=== PATIENT | female | born 1965 | race Caucasian/White ===

== ENCOUNTER 2016-08-13 16:12 | Emergency (ER) | payer MEDICAID ==
[2016-08-13] MEDS ORDERED: HYDROmorphone 1 MG/ML Syringe IM ONE ×2 (17:31→19:11)
[2016-08-13] MEDS ORDERED: Triamcinolone Acetonide 40 MG/ML 1 ML MDV INJECT PRN (18:20)
[2016-08-13] MEDS ORDERED: Ondansetron 4 MG Tab.DIS PO ONE (18:45)
[2016-08-13] MEDS ORDERED: Ondansetron 4 MG/2 ML SDV IVPUSH ONE (19:38)
[2016-08-13] MEDS ORDERED: LORazepam 2 MG/ML MDV IVPUSH ONE (19:39)
[2016-08-13] MEDS ORDERED: Sodium Chloride 0.9% 1,000 ML IV SCH (19:45)
[2016-08-13 21:26] VITALS: BP 126/68
--- NOTE | 2016-08-13 21:32 | EDM.PDOC ---
ED HPI GENERAL MEDICAL PROBLEM - General Chief Complaint: Lower Extremity Injury/Pain Stated Complaint: LT HIP PAIN Time Seen by Provider: 08/13/16 18:12 Source of Information: Reports: Patient History Limitations: Reports: No Limitations - History of Present Illness INITIAL COMMENTS - FREE TEXT/NARRATIVE: History of present illness: [51-year-old female presents complaining of severe 9 out of 10 left hip pain that came on spontaneously at about noon today. She's been to a chiropractor and the clinic received a shot at the clinic and then presented to the ER with severe pain. She's never had anything like this before ambulates with a limp. No history of trauma. No history of arthritis. She does complain of some numbness of her anterior terry at times with it. No weakness of the left lower extremity. No other complaints and no low back pain.] Review of systems: As per history of present illness and below otherwise all systems reviewed and negative. Past medical history: As per history of present illness and as reviewed below otherwise noncontributory. Surgical history: As per history of present illness and as reviewed below otherwise noncontributory. Social history: No reported history of drug or alcohol abuse. Family history: As per history of present illness and as reviewed below otherwise noncontributory. Physical exam: HEENT: Atraumatic, normocephalic, pupils reactive, negative for conjunctival pallor or scleral icterus, mucous membranes moist, throat clear, neck supple, nontender, trachea midline. Lungs: Clear to auscultation, breath sounds equal bilaterally Heart: S1S2, regular Abdomen: Soft, nondistended, nontender. Pelvis: Stable nontender. Genitourinary: Deferred. Rectal: Deferred. Extremities: Manipulation of left hip does not seem to cause any exacerbation of her pain her pain is diffuse and lateral and also into the groin but she does have pain on palpation over the lateral greater trochanteric area. No redness or warmth is present Neuro: Awake, alert, oriented. Cranial nerves II through XII unremarkable. Cerebellum unremarkable. Motor and sensory unremarkable throughout. Exam nonfocal. Diagnostics: [X-rays and pelvic x-rays were both negative for any fracture. She does have some degenerative changes.] Therapeutics: [She received 2 doses of Dilaudid IV fluids also dose of Ativan as she was hyperventilating and I also injected the left greater trochanter with 40 mg of Kenalog mixed with 3 mL of lidocaine 1% without epinephrine. She received moderate help with these interventions but was still in some pain when she left the ER.] Impression: [Left hip pain suspicious for left greater trochanteric bursitis or iliotibial band syndrome] Plan: [She is discharged with 15 [place] and instructed to follow-up the clinic of her pain persists she can try heat and/or ice to the area. She might benefit from physical therapy.] Definitive disposition and diagnosis as appropriate pending reevaluation and review of above. left hip Pain Score (Numeric/FACES): 5 - Related Data Allergies Allergy/AdvReac Type Severity Reaction Status Date / Time apple Allergy Airway Verified 08/13/16 19:19 Tightness peach Allergy Airway Verified 08/13/16 19:19 Tightness peanut Allergy Airway Verified 08/13/16 19:19 Tightness Sulfa (Sulfonamide Allergy Rash Verified 08/13/16 19:19 Antibiotics) tree nut Allergy Airway Verified 08/13/16 19:19 Tightness Home Meds: Home Meds NK [No Known Home Meds] 08/27/15 [History] Past Medical History - Past Surgical History HEENT Surgical History: Reports: Tonsillectomy GI Surgical History: Reports: Bariatric Procedure, Cholecystectomy Social & Family History - Family History Oncologic: Reports: Prostate - Tobacco Use Smoking Status *Q: Never Smoker - Recreational Drug Use Recreational Drug Use: No Review of Systems - Review of Systems Review Of Systems: ROS reveals no pertinent complaints other than HPI. ED EXAM, GENERAL - Physical Exam Exam: See Below Course - Vital Signs Last Recorded V/S: Last Vital Signs Temp 35.2 C L 08/13/16 21:22 Pulse 102 H 08/13/16 21:22 Resp 14 08/13/16 21:22 BP 126/68 08/13/16 21:22 Pulse Ox 93 L 08/13/16 21:22 - Orders/Labs/Meds Orders: Active Orders 24 hr Category Date Time Status Hip Min 2V or 3V Lt [CR] Stat Exams 08/13/16 17:31 Taken Pelvis wo Cont [CT] Stat Exams 08/13/16 19:12 Taken Sodium Chloride 0.9% [Normal Saline] 1,000 ml Med 08/13/16 19:45 Active IV ASDIRECTED Medication Orders Sodium Chloride (Normal Saline) 1,000 mls @ 300 mls/hr IV ASDIRECTED RICARDO Last Admin: 08/13/16 20:08 Dose: 300 mls/hr Meds: Medications Generic Name Dose Route Start Last Admin Trade Name Ej PRN Reason Stop Dose Admin Sodium Chloride 1,000 mls @ 300 mls/hr 08/13/16 19:45 08/13/16 20:08 Normal Saline IV 300 mls/hr ASDIRECTED RICARDO Administration Discontinued Medications Generic Name Dose Route Start Last Admin Trade Name Ej PRN Reason Stop Dose Admin Hydromorphone HCl 1 mg 08/13/16 17:31 08/13/16 17:37 Dilaudid IM 08/13/16 17:32 1 mg ONETIME ONE Administration Hydromorphone HCl 1 mg 08/13/16 19:11 08/13/16 19:19 Dilaudid IM 08/13/16 19:12 1 mg ONETIME ONE Administration Lidocaine HCl 5 ml 08/13/16 18:21 08/13/16 18:35 Xylocaine-Mpf 1% INJECT 08/13/16 18:22 5 ml ONETIME ONE Administration Lorazepam 1 mg 08/13/16 19:39 08/13/16 20:00 Ativan IVPUSH 08/13/16 19:40 1 mg ONETIME ONE Administration Ondansetron HCl 4 mg 08/13/16 18:45 08/13/16 18:56 Zofran Odt PO 08/13/16 18:46 4 mg ONETIME ONE Administration Ondansetron HCl 4 mg 08/13/16 19:38 08/13/16 19:56 Zofran IVPUSH 08/13/16 19:39 4 mg ONETIME ONE Administration Triamcinolone Acetonide 40 mg 08/13/16 18:20 08/13/16 18:35 Kenalog-40 INJECT 08/13/16 18:21 40 mg ASDIRECTED PRN Administration Pain (severe 7-10) Departure - Departure Time of Disposition: 21:31 Disposition: Home, Self-Care 01 Condition: Good Clinical Impression: Greater trochanteric bursitis of left hip, Iliotibial band syndrome affecting left lower leg - Discharge Information Forms: ED Department Discharge Additional Instructions: Please try applying ice or heat to the area that is hurting. If not improving over the next couple of days follow up in the clinic. Your doctor may order physical therapy for you. You could also try [facility]. - My Orders Last 24 Hours: My Active Orders 08/13/16 19:12 Pelvis wo Cont [CT] Stat 08/13/16 19:45 Sodium Chloride 0.9% [Normal Saline] 1,000 ml IV ASDIRECTED - Assessment/Plan Last 24 Hours: My Active Orders 08/13/16 19:12 Pelvis wo Cont [CT] Stat 08/13/16 19:45 Sodium Chloride 0.9% [Normal Saline] 1,000 ml IV ASDIRECTED
--- NOTE | 2016-08-14 08:50 | CR ---
Hip Min 2V or 3V Lt HISTORY: pain FINDINGS: No acute fracture or dislocation is identified. Bony architecture and joint spaces are preserved. Soft tissues are unremarkable. I see no joint effusion. IMPRESSION: No acute left hip abnormality identified.
== END 2016-08-13 21:51 | disposition home or self-care (01) ==
LOC: JP.ED 16:12
DX: M70.62 Trochanteric bursitis, left hip (principal); M76.32 Iliotibial band syndrome, left leg; Z90.49 Acquired absence of other specified parts of digestive tract; Z91.018 Allergy to other foods; Z88.2 Allergy status to sulfonamides
CPT/HCPCS: 72192; 73502; 96361; 96372; 96374; 96375; 99284; A9270; J1170; J2060; J2405; J3301; J7040

== ENCOUNTER 2016-08-14 10:46 | Observation (INO) | payer MEDICAID ==
[2016-08-14] MEDS ORDERED: Ondansetron 4 MG/2 ML SDV IVPUSH ONE (11:29)
[2016-08-14] MEDS ORDERED: Ketorolac 30 MG/ML SDV IVPUSH ONE (11:29)
[2016-08-14] MEDS ORDERED: Sodium Chloride 0.9% 1,000 ML IV SCH ×2 (11:30→13:00)
--- NOTE | 2016-08-14 11:42 | EDM.PDOC ---
[id number] Complaint: PAIN Time Seen by Provider: 08/14/16 11:41 Source of Information: Reports: Patient History Limitations: Reports: No Limitations - History of Present Illness INITIAL COMMENTS - FREE TEXT/NARRATIVE: pt arrived with marked vomiting related to the hydrocodone. She is very uncomfortable rating her pain greater than a 10. She was seen yesterday and she had hip xrays and she had a cat scan of the pelvis. She had evidence of degenerative disc disease at l5_ s1 There was no acute abnormality of the hip. She did have a steriod injection in the left hip. She has been extremly uncomfortable. Onset: Gradual Duration: Day(s):, Getting Worse Location: Reports: Back, Lower Extremity, Left Left Hip Pain Score (Numeric/FACES): 10 - Related Data Allergies Allergy/AdvReac Type Severity Reaction Status Date / Time apple Allergy Airway Verified 08/14/16 11:01 Tightness peach Allergy Airway Verified 08/14/16 11:01 Tightness peanut Allergy Airway Verified 08/14/16 11:01 Tightness Sulfa (Sulfonamide Allergy Rash Verified 08/14/16 11:01 Antibiotics) tree nut Allergy Airway Verified 08/14/16 11:01 Tightness Home Meds: Home Meds Hydrocodone/Acetaminophen [Hydrocodon-Acetaminophen 5-325] 1 tab PO Q4H PRN [History] Multivitamin [Multi-Vitamin Daily] 1 tab PO DAILY 08/14/16 [History] Past Medical History MEDICAL ASST History: Reports: - Past Surgical History HEENT Surgical History: Reports: Tonsillectomy GI Surgical History: Reports: Bariatric Procedure, Cholecystectomy Social & Family History - Family History Oncologic: Reports: Prostate - Tobacco Use Smoking Status *Q: Never Smoker - Caffeine Use Caffeine Use: Reports: None - Recreational Drug Use Recreational Drug Use: No Review of Systems - Review of Systems Review Of Systems: See Below Constitutional: Reports: No Symptoms Eyes: Reports: No Symptoms Ears: Reports: No Symptoms Nose: Reports: No Symptoms Mouth/Throat: Reports: No Symptoms Respiratory: Reports: No Symptoms Cardiovascular: Reports: No Symptoms GI/Abdominal: Reports: Nausea, Vomiting Genitourinary: Reports: No Symptoms Musculoskeletal: Reports: Other ( severe pain over the left hip, low back and extending into the groin. ) Skin: Reports: No Symptoms ED EXAM, GENERAL - Physical Exam Exam: See Below Free Text/Narrative:: pt arrived with left hip pain and pain in the lumboscral area. She states this came on relatively acutely. She had no known injury. Exam Limited By: No Limitations General Appearance: Alert, Anxious, Severe Distress, Other (pt is wretching and vomiting. ) Ears: Normal TMs Nose: Normal Inspection Throat/Mouth: Normal Inspection Head: Atraumatic Neck: Normal Inspection Respiratory/Chest: No Respiratory Distress Cardiovascular: Regular Rate, Rhythm GI/Abdominal: Soft, Non-Tender (Female) Exam: Deferred Rectal (Female) Exam: Deferred Back Exam: Other (pt is tender over the lower left lumbar area. Sas mild tenderness over the hip capsule. She has a minor increase in pain when the hip is moved. ) Extremities: Normal Inspection, No Pedal Edema Neurological: Alert, Oriented, Normal Cognition Psychiatric: Normal Affect Course - Vital Signs Last Recorded V/S: Last Vital Signs Temp 36.1 C 08/15/16 10:59 Pulse 74 08/15/16 10:59 Resp 16 08/15/16 10:59 BP 123/76 08/15/16 10:59 Pulse Ox 92 L 08/15/16 10:59 - Orders/Labs/Meds Orders: Medication Orders Acetaminophen (Tylenol) 650 mg PO Q4H PRN PRN Reason: Pain (Mild 1-3)/fever Last Admin: 08/15/16 13:56 Dose: 650 mg Hydromorphone HCl (Dilaudid) 0.5 - 1 mg IVPUSH Q2H PRN PRN Reason: Pain (severe 7-10) Last Admin: 08/15/16 11:49 Dose: 1 mg Admin: 08/14/16 21:06 Dose: 1 mg Admin: 08/14/16 16:35 Dose: 1 mg Ibuprofen (Motrin) 600 mg PO Q6H PRN PRN Reason: Pain/Fever Lorazepam (Ativan) 0.5 - 1 mg IVPUSH Q4H PRN PRN Reason: Nausea/Vomiting Last Admin: 08/14/16 21:26 Dose: 1 mg Methylprednisolone (Medrol) 8 mg PO BEDTIME RICARDO Stop: 08/15/16 21:01 Methylprednisolone (Medrol) 4 mg PO 0800,1100,1700,2100 RICARDO Stop: 08/16/16 21:01 Methylprednisolone (Medrol) 4 mg PO TID@0800,1100,2100 [facility] Stop: 08/17/16 21:01 Methylprednisolone (Medrol) 4 mg PO BID@0800,2100 [facility] Stop: 08/18/16 21:01 Ondansetron HCl (Zofran Odt) 4 mg PO Q6H PRN PRN Reason: Nausea able to take PO Last Admin: 08/14/16 17:06 Dose: 4 mg Ondansetron HCl (Zofran) 4 mg IV Q6H PRN PRN Reason: Nausea/Vomiting Last Admin: 08/14/16 17:51 Dose: 4 mg Oxycodone HCl (Oxycodone) 5 mg PO Q4H PRN PRN Reason: Pain (moderate 4-6) Last Admin: 08/15/16 17:15 Dose: 5 mg Polyethylene Glycol (Miralax) 17 gm PO DAILY PRN PRN Reason: Constipation Senna/Docusate Sodium (Senna Plus) 1 tab PO BID PRN PRN Reason: Constipation Last Admin: 08/15/16 13:58 Dose: 1 tab Labs: Laboratory Tests 08/14/16 08/14/16 08/14/16 Range/Units 12:31 12:31 12:42 WBC 8.6 (4.5-11.0) K/uL RBC 4.52 (3.30-5.50) M/uL Hgb 13.2 (12.0-15.0) g/dL Hct 39.9 (36.0-48.0) % MCV 88 (80-98) fL MCH 29 (27-31) pg MCHC 33 (32-36) % Plt Count 208 (150-400) K/uL Neut % (Auto) 85 H (36-66) % Lymph % (Auto) 10 L (24-44) % [place] % (Auto) 4 (2-6) % Eos % (Auto) 0 L (2-4) % Baso % (Auto) 0 (0-1) % Sodium 136 L (140-148) mmol/L Potassium 4.1 (3.6-5.2) mmol/L Chloride 101 (100-108) mmol/L Carbon Dioxide 27 (21-32) mmol/L Anion Gap 12.1 (5.0-14.0) mmol/L BUN 17 (7-18) mg/dL Creatinine 0.6 (0.6-1.0) mg/dL Est Cr Clr Drug Dosing TNP Estimated GFR (MDRD) > 60 (>60) Glucose 281 H (74-106) mg/dL Calcium 8.7 (8.5-10.1) mg/dL Total Bilirubin 0.9 (0.2-1.0) mg/dL AST 25 (15-37) U/L ALT 55 (12-78) U/L Alkaline Phosphatase 127 H (46-116) U/L Total Protein 6.9 (6.4-8.2) g/dL Albumin 3.4 (3.4-5.0) g/dL Globulin 3.5 (2.3-3.5) g/dL Albumin/Globulin Ratio 1.0 L (1.2-2.2) Urine Color Yellow Urine Appearance Clear Urine pH 5.0 (4.5-8.0) Ur Specific [place] 1.020 (1.008-1.030) Urine Protein 30 H (NEGATIVE) mg/dL Urine Glucose (UA) 1000 H (NEGATIVE) mg/dL Urine Ketones 50 H (NEGATIVE) mg/dL Urine Occult Blood Negative (NEGATIVE) Urine Nitrite Negative (NEGATIVE) Urine Bilirubin Negative (NEGATIVE) Urine Urobilinogen Normal (NORMAL) mg/dL Ur Leukocyte Esterase Negative (NEGATIVE) Urine RBC 0-5 (0-5) Urine WBC 0-5 (0-5) Ur Epithelial Cells Few Amorphous Sediment Not seen Urine Bacteria Few Urine Mucus Few Meds: Medications Generic Name Dose Route Start Last Admin Trade Name Freq PRN Reason Stop Dose Admin Acetaminophen 650 mg 08/14/16 16:20 08/15/16 13:56 Tylenol PO 650 mg Q4H PRN Administration Pain (Mild 1-3)/fever Hydromorphone HCl 0.5 - 1 mg 08/14/16 16:20 08/15/16 11:49 Dilaudid IVPUSH 1 mg Q2H PRN Administration Pain (severe 7-10) Ibuprofen 600 mg 08/14/16 16:20 Motrin PO Q6H PRN Pain/Fever Lorazepam 0.5 - 1 mg 08/14/16 16:20 08/14/16 21:26 Ativan IVPUSH 1 mg Q4H PRN Administration Nausea/Vomiting Methylprednisolone 8 mg 08/15/16 21:00 Medrol PO 08/15/16 21:01 BEDTIME RICARDO Methylprednisolone 4 mg 08/16/16 08:00 Medrol PO 08/16/16 21:01 0800,1100,1700,2100 RICARDO Methylprednisolone 4 mg 08/17/16 08:00 Medrol PO 08/17/16 21:01 TID@0800,1100,2100 [facility] Methylprednisolone 4 mg 08/18/16 08:00 Medrol PO 08/18/16 21:01 BID@0800,2100 [facility] Ondansetron HCl 4 mg 08/14/16 16:20 08/14/16 17:06 Zofran Odt PO 4 mg Q6H PRN Administration Nausea able to take PO Ondansetron HCl 4 mg 08/14/16 16:20 08/14/16 17:51 Zofran IV 4 mg Q6H PRN Administration Nausea/Vomiting Oxycodone HCl 5 mg 08/14/16 16:20 08/15/16 17:15 Oxycodone PO 5 mg Q4H PRN Administration Pain (moderate 4-6) Polyethylene Glycol 17 gm 08/14/16 16:20 Miralax PO DAILY PRN Constipation Senna/Docusate Sodium 1 tab 08/14/16 16:20 08/15/16 13:58 Senna Plus PO 1 tab BID PRN Administration Constipation Discontinued Medications Generic Name Dose Route Start Last Admin Trade Name Freq PRN Reason Stop Dose Admin Diazepam 3 mg 08/14/16 11:29 08/14/16 11:45 Valium IVPUSH 08/14/16 11:30 3 mg ONETIME ONE Administration Hydromorphone HCl 0.5 mg 08/14/16 12:39 08/14/16 12:45 Dilaudid IVPUSH 08/14/16 12:40 0.5 mg ONETIME ONE Administration Sodium Chloride 1,000 mls @ 999 mls/hr 08/14/16 11:30 08/14/16 11:41 Normal Saline IV 999 mls/hr ASDIRECTED RICARDO Administration Sodium Chloride 1,000 mls @ 250 mls/hr 08/14/16 13:00 08/14/16 13:03 Normal Saline IV 250 mls/hr ASDIRECTED RICARDO Administration Ketorolac Tromethamine 30 mg 08/14/16 11:29 08/14/16 11:49 Toradol IVPUSH 08/14/16 11:30 30 mg ONETIME ONE Administration Methylprednisolone 8 mg 08/14/16 17:00 08/14/16 21:07 Medrol PO 08/14/16 22:01 8 mg TID@1700,2000,2200 RIACRDO Administration Methylprednisolone 4 mg 08/15/16 08:00 08/15/16 17:11 Medrol PO 08/15/16 17:01 4 mg TIDMEALS RICARDO Administration Ondansetron HCl 4 mg 08/14/16 11:29 08/14/16 11:42 Zofran IVPUSH 08/14/16 11:30 4 mg ONETIME ONE Administration Prochlorperazine Edisylate 10 mg 08/14/16 13:05 08/14/16 13:09 Compazine IVPUSH 08/14/16 13:06 10 mg ONETIME ONE Administration - Re-Assessments/Exams Free Text/Narrative Re-Assessment/Exam: 08/14/16 12:50 lumbar spine seris showed marked narrowing of the L5 _L 6 area. I feel the pain may be coming from the L5_s1 area. 08/15/16 19:14 Departure - Departure Time of Disposition: 12:54 Disposition: Admitted As Inpatient 64 Condition: Fair Clinical Impression: Lumbar back pain with radiculopathy affecting left lower extremity, Medication intolerance, Hyperglycemia - Discharge Information
[2016-08-14] MEDS ORDERED: HYDROmorphone 0.5 MG/0.5 ML Syringe IVPUSH ONE (12:39)
[2016-08-14] MEDS ORDERED: Prochlorperazine 10 MG/2 ML SDV IVPUSH ONE (13:05)
--- NOTE | 2016-08-14 13:51 | CR ---
Lumbar Spine Min 4V HISTORY: pain in rt buttock area. FINDINGS: Lumbar vertebral bodies appear intact and in satisfactory alignment. No compression fracture is see n. There is a transitional vertebrae at the lumbosacral level which appears to represent partial lum bar station of S1. Fairly prominent disc space narrowing with mild vacuum disc phenomenon is present at L5-S1. Small anterior aspects of present at this level. There is slight narrowing of the disc sp margarito at L4-5. Small anterior osteophytes are noted along the lower thoracic and lumbar spine. Spinous processes, posterior elements, and pedicles appear intact and in satisfactory alignment. No pars in terarticularis defects are seen on the oblique views. Perivertebral soft tissues appear normal. IMPRESSION: No acute lumbar spine abnormality identified. Degenerative changes most prominent at L5-S1. Transiti onal vertebrae at the lumbosacral level is considered S1 for this exam.
--- NOTE | 2016-08-14 14:12 | PCM.HP ---
H&P History of Present Illness - General Date of Service: 08/14/16 Admit Problem/Dx: Admission Diagnosis/Problem Admission Diagnosis/Problem Lumbar radiculopathy Source of Information: Patient, Provider History Limitations: Reports: No Limitations - History of Present Illness Initial Comments - Free Text/Narative: Laurence presents to the emergency room again today with ongoing left buttocks and hip pain. Her pain has not improved any since yesterday and now she is vomiting and unable to keep down any of her pain medications. She describes her pain as severe sharp throbbing pain that starts in her lower back and radiates through the left buttocks and to the left hip. The pain does not go all the way down to the knee. She did get some relief from the pain medication yesterday but has been vomiting ever since she got home. She did not sleep much last night because of the pain. Standing up makes her pain the most severe but essentially any position causes pain. She is not aware of any fevers or chills. She has not had any diarrhea. No numbness or tingling of either leg but in particular not in the left. She does not complain of bowel or bladder incontinence. Workup in the emergency room revealed a female who was in a fair amount of distress and vomiting. Imaging suggested loss of lumbar disc height between L5 and S1. There is concern for an acute radiculopathy with pain that is difficult to control due to the vomiting. Patient will be admitted for further management. Left Hip Pain Score (Numeric/FACES): 10 - Related Data Allergies/Adverse Reactions: Allergies Allergy/AdvReac Type Severity Reaction Status Date / Time apple Allergy Airway Verified 08/14/16 11:01 Tightness peach Allergy Airway Verified 08/14/16 11:01 Tightness peanut Allergy Airway Verified 08/14/16 11:01 Tightness Sulfa (Sulfonamide Allergy Rash Verified 08/14/16 11:01 Antibiotics) tree nut Allergy Airway Verified 08/14/16 11:01 Tightness Home Medications: Home Meds Hydrocodone/Acetaminophen [Hydrocodon-Acetaminophen 5-325] 1 tab PO Q4H PRN [History] Multivitamin [Multi-Vitamin Daily] 1 tab PO DAILY 08/14/16 [History] Past Medical History [employer]ATOR History: Reports: Endocrine/Metabolic History: Reports: Obesity/BMI 30+ - Past Surgical History HEENT Surgical History: Reports: Tonsillectomy GI Surgical History: Reports: Bariatric Procedure, Cholecystectomy Social & Family History - Family History Oncologic: Reports: Prostate - Tobacco Use Smoking Status *Q: Never Smoker - Caffeine Use Caffeine Use: Reports: None - Alcohol Use Alcohol Use History: No - Recreational Drug Use Recreational Drug Use: No H&P Review of Systems - Review of Systems: Review Of Systems: See Below Free Text/Narrative: A complete 12 point review of systems was obtained. Pertinent positives and negatives are noted in the history of present illness. All other systems were reviewed and were negative except as noted. Exam - Exam Exam: See Below - Vital Signs Vital Signs: Last Vital Signs Temp 35.9 C 08/14/16 13:18 Pulse 84 08/14/16 13:18 Resp 14 08/14/16 13:18 BP 116/64 08/14/16 13:18 Pulse Ox 93 L 08/14/16 13:18 Weight: 99.79 kg - Exam Quality Assessment: No: Supplemental Oxygen General: Alert, Oriented, Cooperative, Mild Distress HEENT: Conjunctiva Clear, Mucosa Moist & [place]. No: Scleral Icterus Neck: Supple, Trachea Midline. No: Lymphadenopathy, Thyromegaly Lungs: Normal Respiratory Effort Cardiovascular: Regular Rate, Regular Rhythm Abdomen: Soft. No: Distention Back Exam: Decreased Range of Motion, Paraspinal Tenderness, Vertebral Tenderness (lower lumbar spine) Extremities: Normal Inspection, Normal Pulses. No: Edema Peripheral Pulses: 2+: Dorsalis Pedis (L), Dorsalis Pedis (R) Skin: Warm, Dry Neuro Extensive - Mental Status: Alert, Oriented x3, Nl Response to Commands Neuro Extensive - Motor, Sensory, Reflexes: CN II-XII Intact. No: Dysarthria, Abnormal Motor, Tremor Psychiatric: Alert, Normal Affect - Patient Data Lab Results Last 24 hrs: Laboratory Results - last 24 hr 08/14/16 08/14/16 08/14/16 Range/Units 12:31 12:31 12:42 WBC 8.6 (4.5-11.0) K/uL RBC 4.52 (3.30-5.50) M/uL Hgb 13.2 (12.0-15.0) g/dL Hct 39.9 (36.0-48.0) % MCV 88 (80-98) fL MCH 29 (27-31) pg MCHC 33 (32-36) % Plt Count 208 (150-400) K/uL Neut % (Auto) 85 H (36-66) % Lymph % (Auto) 10 L (24-44) % [place] % (Auto) 4 (2-6) % Eos % (Auto) 0 L (2-4) % Baso % (Auto) 0 (0-1) % Sodium 136 L (140-148) mmol/L Potassium 4.1 (3.6-5.2) mmol/L Chloride 101 (100-108) mmol/L Carbon Dioxide 27 (21-32) mmol/L Anion Gap 12.1 (5.0-14.0) mmol/L BUN 17 (7-18) mg/dL Creatinine 0.6 (0.6-1.0) mg/dL Est Cr Clr Drug Dosing TNP Estimated GFR (MDRD) > 60 (>60) Glucose 281 H (74-106) mg/dL Calcium 8.7 (8.5-10.1) mg/dL Total Bilirubin 0.9 (0.2-1.0) mg/dL AST 25 (15-37) U/L ALT 55 (12-78) U/L Alkaline Phosphatase 127 H (46-116) U/L Total Protein 6.9 (6.4-8.2) g/dL Albumin 3.4 (3.4-5.0) g/dL Globulin 3.5 (2.3-3.5) g/dL Albumin/Globulin Ratio 1.0 L (1.2-2.2) Urine Color Yellow Urine Appearance Clear Urine pH 5.0 (4.5-8.0) Ur Specific [place] 1.020 (1.008-1.030) Urine Protein 30 H (NEGATIVE) mg/dL Urine Glucose (UA) 1000 H (NEGATIVE) mg/dL Urine Ketones 50 H (NEGATIVE) mg/dL Urine Occult Blood Negative (NEGATIVE) Urine Nitrite Negative (NEGATIVE) Urine Bilirubin Negative (NEGATIVE) Urine Urobilinogen Normal (NORMAL) mg/dL Ur Leukocyte Esterase Negative (NEGATIVE) Urine RBC 0-5 (0-5) Urine WBC 0-5 (0-5) Ur Epithelial Cells Few Amorphous Sediment Not seen Urine Bacteria Few Urine Mucus Few Result Diagrams: 08/14/16 12:31 08/14/16 12:31 Imaging Impressions Last 24 hrs: Lumbar spine x-ray - images personally reviewed - loss of disc height between L5 and S1 but otherwise alignment is normal. no evidence for fracture *Q Meaningful Use (ADM) - VTE *Q VTE Criteria *Q: - VTE Risk Assess *Q Each Risk Factor Represents 1 Point: Age 41 - 59 years, Obesity (BMI greater than 30) Total Score 1 Point Risk Factors: 2 Each Risk Factor Represents 2 Points: None Total Score 2 Point Risk Factors: 0 Each Risk Factor Represents 3 Points: None Total Score 3 Point Risk Factors: 0 Each Risk Factor Represents 5 Points: None Total Score 5 Point Risk Factors: 0 Venous Thromboembolism Risk Factor Score *Q: 2 - Stroke *Q Stroke Criteria *Q: - AMI *Q AMI Criteria *Q: - Problem List (1) Acute left lumbar radiculopathy SNOMED Code(s): 551023234 ICD Code: M54.16 - RADICULOPATHY, LUMBAR REGION Status: Acute Current Visit: Yes Problem List Initiated/Reviewed/Updated: Yes Orders Last 24hrs: Active Orders 24 hr Category Date Time Status Patient Status Manage Transfer [TRANSFER] Routine ADT 08/14/16 14:00 Active Sodium Chloride 0.9% [Normal Saline] 1,000 ml Med 08/14/16 11:30 Active IV ASDIRECTED Sodium Chloride 0.9% [Normal Saline] 1,000 ml Med 08/14/16 13:00 Active IV ASDIRECTED Resuscitation Status Routine Resus Stat 08/14/16 14:01 Ordered Medication Orders Sodium Chloride (Normal Saline) 1,000 mls @ 999 mls/hr IV ASDIRECTED [facility] Last Admin: 08/14/16 11:41 Dose: 999 mls/hr Sodium Chloride (Normal Saline) 1,000 mls @ 250 mls/hr IV ASDIRECTED [facility] Last Admin: 08/14/16 13:03 Dose: 250 mls/hr Assessment/Plan Comment:: Assessment and plan - Acute left lumbar radiculopathy - imaging suggest pathology between L5 and S1. No history of trauma. Patient did have increased activity over the weekend and this could be the exacerbating factor. Not safe for outpatient management with her vomiting. No neurologic deficits or red flags at this time. -Medrol Dosepak -Acetaminophen for mild pain, oxycodone for moderate pain and Dilaudid for severe pain -Physical therapy -Consider orthopedic consultation if not improving tomorrow -Consider MRI of her lumbar spine Maintenance issues - - DVT prophylaxis - mechanical - GI prophylaxis - not indicated - Nutrition - regular diet as tolerated - Corrales catheter - not indicated CODE STATUS - full code Admission justification - patient will be referred to observation status for close monitoring, pain control and nausea management Disposition - anticipate discharge to home in one or maybe 2 days Jose Erwin M.D.
[2016-08-14] MEDS ORDERED: Ondansetron 4 MG/2 ML SDV IV PRN (16:20)
[2016-08-14] MEDS ORDERED: Polyethylene Glycol 3350 Powder 17 GM Packet PO PRN (16:20)
[2016-08-14] MEDS ORDERED: methylPREDNISolone 4 MG Tab 21 Tab/Dosepak PO SCH (16:20)
[2016-08-14] MEDS: HYDROmorphone 1 MG/ML Syringe IVPUSH PRN ×2 (16:35→21:06)
[2016-08-14] MEDS: Ondansetron 4 MG Tab.DIS PO PRN (17:06)
[2016-08-14] MEDS: LORazepam 2 MG/ML MDV IVPUSH PRN (21:26)
[2016-08-15] MEDS: HYDROmorphone 1 MG/ML Syringe IVPUSH PRN (11:49)
[2016-08-15] MEDS: Acetaminophen 325 MG Tab PO PRN (13:56)
[2016-08-15] MEDS: oxyCODONE 5 MG Tab PO PRN ×2 (17:15→21:29)
--- NOTE | 2016-08-15 18:14 | PCM.PN ---
- General Info Date of Service: 08/15/16 Functional Status: Reports: tolerating diet, ambulating - Review of Systems Musculoskeletal: Reports: back pain, leg pain Systems Review Comment:: No acute events overnight and pain was very well controlled this morning but as her activity has increased her pain has increased to fair amount. Still has low back pain with more impressive hip and buttock pain on the left. She was able to walk approximately 40 feet today. Pain almost doubled with ambulation. No bowel or bladder incontinence. She is very nervous about going home at her current pain level. - Patient Data Vitals - most recent: Last Vital Signs Temp 36.1 C 08/15/16 10:59 Pulse 74 08/15/16 10:59 Resp 16 08/15/16 10:59 BP 123/76 08/15/16 10:59 Pulse Ox 92 L 08/15/16 10:59 Weight - most recent: 102.965 kg I&O - last 24 hours: Intake & Output 08/15/16 08/15/16 08/15/16 06:59 14:59 22:59 Intake Total 300 280 Output Total 1900 1300 Balance -1600 -1020 Med Orders - Current: Current Medications Acetaminophen (Tylenol) 650 mg PO Q4H PRN PRN Reason: Pain (Mild 1-3)/fever Last Admin: 08/15/16 13:56 Dose: 650 mg Hydromorphone HCl (Dilaudid) 0.5 - 1 mg IVPUSH Q2H PRN PRN Reason: Pain (severe 7-10) Last Admin: 08/15/16 11:49 Dose: 1 mg Ibuprofen (Motrin) 600 mg PO Q6H PRN PRN Reason: Pain/Fever Lorazepam (Ativan) 0.5 - 1 mg IVPUSH Q4H PRN PRN Reason: Nausea/Vomiting Last Admin: 08/14/16 21:26 Dose: 1 mg Methylprednisolone (Medrol) 8 mg PO BEDTIME [facility] Stop: 08/15/16 21:01 Methylprednisolone (Medrol) 4 mg PO 0800,1100,1700,2100 [facility] Stop: 08/16/16 21:01 Methylprednisolone (Medrol) 4 mg PO TID@0800,1100,2100 [facility] Stop: 08/17/16 21:01 Methylprednisolone (Medrol) 4 mg PO BID@0800,2100 [facility] Stop: 08/18/16 21:01 Ondansetron HCl (Zofran Odt) 4 mg PO Q6H PRN PRN Reason: Nausea able to take PO Last Admin: 08/14/16 17:06 Dose: 4 mg Ondansetron HCl (Zofran) 4 mg IV Q6H PRN PRN Reason: Nausea/Vomiting Last Admin: 08/14/16 17:51 Dose: 4 mg Oxycodone HCl (Oxycodone) 5 mg PO Q4H PRN PRN Reason: Pain (moderate 4-6) Last Admin: 08/15/16 17:15 Dose: 5 mg Polyethylene Glycol (Miralax) 17 gm PO DAILY PRN PRN Reason: Constipation Senna/Docusate Sodium (Senna Plus) 1 tab PO BID PRN PRN Reason: Constipation Last Admin: 08/15/16 13:58 Dose: 1 tab Discontinued Medications Diazepam (Valium) 3 mg IVPUSH ONETIME ONE Stop: 08/14/16 11:30 Last Admin: 08/14/16 11:45 Dose: 3 mg Hydromorphone HCl (Dilaudid) 0.5 mg IVPUSH ONETIME ONE Stop: 08/14/16 12:40 Last Admin: 08/14/16 12:45 Dose: 0.5 mg Sodium Chloride (Normal Saline) 1,000 mls @ 999 mls/hr IV ASDIRECTED [facility] Last Admin: 08/14/16 11:41 Dose: 999 mls/hr Sodium Chloride (Normal Saline) 1,000 mls @ 250 mls/hr IV ASDIRECTED [facility] Last Admin: 08/14/16 13:03 Dose: 250 mls/hr Ketorolac Tromethamine (Toradol) 30 mg IVPUSH ONETIME ONE Stop: 08/14/16 11:30 Last Admin: 08/14/16 11:49 Dose: 30 mg Methylprednisolone (Medrol) 8 mg PO TID@1700,2000,2200 [facility] Stop: 08/14/16 22:01 Last Admin: 08/14/16 21:07 Dose: 8 mg Methylprednisolone (Medrol) 4 mg PO TIDMEALS [facility] Stop: 08/15/16 17:01 Last Admin: 08/15/16 17:11 Dose: 4 mg Ondansetron HCl (Zofran) 4 mg IVPUSH ONETIME ONE Stop: 08/14/16 11:30 Last Admin: 08/14/16 11:42 Dose: 4 mg Prochlorperazine Edisylate (Compazine) 10 mg IVPUSH ONETIME ONE Stop: 08/14/16 13:06 Last Admin: 08/14/16 13:09 Dose: 10 mg - Exam Quality Assessment: No: supplemental oxygen General: alert, oriented, cooperative, no acute distress Neck: supple Lungs: Normal respiratory effort Cardiovascular: Regular Rate, Regular Rhythm Abdomen: soft, no distension Extremities: no edema, no cyanosis Neurological: no new focal deficit Psy/Mental Status: alert, normal affect - Problem List & Annotations (1) Acute left lumbar radiculopathy SNOMED Code(s): 844271893 Code(s): M54.16 - RADICULOPATHY, LUMBAR REGION Status: Acute Current Visit: Yes - Problem List Review Problem List Initiated/Reviewed/Updated: Yes - My Orders Last 24 Hours: My Active Orders 08/15/16 07:00 PT Evaluation and Treatment [CONS] Routine 08/15/16 21:00 methylPREDNISolone [Medrol] 8 mg PO BEDTIME 08/16/16 08:00 methylPREDNISolone [Medrol] 4 mg PO 0800,1100,1700,2100 08/17/16 08:00 methylPREDNISolone [Medrol] 4 mg PO TID@0800,1100,2100 08/18/16 08:00 methylPREDNISolone [Medrol] 4 mg PO BID@0800,2100 - Plan Plan:: Assessment and plan - Acute left lumbar radiculopathy - imaging suggest pathology between L5 and S1. Improved overnight but patient still very nervous about safety at home area and moving better today but still suboptimal functional status. Tolerating current medications. No red flags to suggest need for urgent neuroimaging. -Medrol Dosepak -Acetaminophen for mild pain, oxycodone for moderate pain and Dilaudid for severe pain -Physical therapy -Consider orthopedic consultation if she does not continue to improve Maintenance issues - - DVT prophylaxis - mechanical - GI prophylaxis - not indicated - Nutrition - regular diet as tolerated Admission justification - patient will be referred to observation status for close monitoring, pain control and nausea management Disposition - anticipate discharge to home tomorrow Jose Erwin M.D.
[2016-08-16] MEDS: oxyCODONE 5 MG Tab PO PRN ×2 (01:32→05:35)
[2016-08-16] MEDS: Ibuprofen 600 MG Tab PO PRN ×2 (05:36→12:20)
[2016-08-16] MEDS: Ondansetron 4 MG Tab.DIS PO PRN (06:52)
[2016-08-16] MEDS: HYDROmorphone 1 MG/ML Syringe IVPUSH PRN (07:56)
[2016-08-16] MEDS: LORazepam 2 MG/ML MDV IVPUSH PRN (09:08)
--- NOTE | 2016-08-16 14:17 | PCM.PN ---
- General Info Date of Service: 08/16/16 Functional Status: Reports: ambulating. Denies: pain controlled - Review of Systems General: Reports: Weakness Musculoskeletal: Reports: back pain Systems Review Comment:: Pain fairly well controlled through the night but early this morning she developed severe pain in her lower back and left buttocks and hip again. No help with oral medications and she finally did get some relief with IV lorazepam and IV narcotics. She has not had any fevers. She has not been out of bed or very active today and has been somnolent throughout much of the day. She continues to complain of spasm-like pain in her lower back. No paresthesias or bowel or bladder issues. - Patient Data Vitals - most recent: Last Vital Signs Temp 36.1 C 08/16/16 11:00 Pulse 77 08/16/16 11:00 Resp 18 08/16/16 11:00 BP 133/68 08/16/16 11:00 Pulse Ox 94 L 08/16/16 11:00 Weight - most recent: 102.965 kg I&O - last 24 hours: Intake & Output 08/15/16 08/16/16 08/16/16 22:59 06:59 14:59 Intake Total 650 Output Total 1700 1700 Balance -1700 -1700 650 Med Orders - Current: Current Medications Acetaminophen (Tylenol) 650 mg PO Q4H PRN PRN Reason: Pain (Mild 1-3)/fever Last Admin: 08/15/16 13:56 Dose: 650 mg Hydromorphone HCl (Dilaudid) 0.5 - 1 mg IVPUSH Q2H PRN PRN Reason: Pain (severe 7-10) Last Admin: 08/16/16 07:56 Dose: 1 mg Ibuprofen (Motrin) 600 mg PO Q6H PRN PRN Reason: Pain/Fever Last Admin: 08/16/16 12:20 Dose: 600 mg Lorazepam (Ativan) 0.5 - 1 mg IVPUSH Q4H PRN PRN Reason: Nausea/Vomiting Last Admin: 08/16/16 09:08 Dose: 1 mg Methylprednisolone (Medrol) 4 mg PO 0800,1100,1700,2100 [facility] Stop: 08/16/16 21:01 Last Admin: 08/16/16 12:18 Dose: 4 mg Methylprednisolone (Medrol) 4 mg PO TID@0800,1100,2100 [facility] Stop: 08/17/16 21:01 Methylprednisolone (Medrol) 4 mg PO BID@0800,2100 [facility] Stop: 08/18/16 21:01 Ondansetron HCl (Zofran Odt) 4 mg PO Q6H PRN PRN Reason: Nausea able to take PO Last Admin: 08/16/16 06:52 Dose: 4 mg Ondansetron HCl (Zofran) 4 mg IV Q6H PRN PRN Reason: Nausea/Vomiting Last Admin: 08/14/16 17:51 Dose: 4 mg Oxycodone HCl (Oxycodone) 5 mg PO Q4H PRN PRN Reason: Pain (moderate 4-6) Last Admin: 08/16/16 05:35 Dose: 5 mg Polyethylene Glycol (Miralax) 17 gm PO DAILY PRN PRN Reason: Constipation Senna/Docusate Sodium (Senna Plus) 1 tab PO BID PRN PRN Reason: Constipation Last Admin: 08/15/16 13:58 Dose: 1 tab Discontinued Medications Diazepam (Valium) 3 mg IVPUSH ONETIME ONE Stop: 08/14/16 11:30 Last Admin: 08/14/16 11:45 Dose: 3 mg Hydromorphone HCl (Dilaudid) 0.5 mg IVPUSH ONETIME ONE Stop: 08/14/16 12:40 Last Admin: 08/14/16 12:45 Dose: 0.5 mg Sodium Chloride (Normal Saline) 1,000 mls @ 999 mls/hr IV ASDIRECTED [facility] TO [facility] Last Admin: 08/14/16 11:41 Dose: 999 mls/hr Sodium Chloride (Normal Saline) 1,000 mls @ 250 mls/hr IV ASDIRECTED [facility] TO [facility] Last Admin: 08/14/16 13:03 Dose: 250 mls/hr Ketorolac Tromethamine (Toradol) 30 mg IVPUSH ONETIME ONE Stop: 08/14/16 11:30 Last Admin: 08/14/16 11:49 Dose: 30 mg Methylprednisolone (Medrol) 8 mg PO TID@1700,2000,2200 [facility] Stop: 08/14/16 22:01 Last Admin: 08/14/16 21:07 Dose: 8 mg Methylprednisolone (Medrol) 4 mg PO TIDMEALS [facility] Stop: 08/15/16 17:01 Last Admin: 08/15/16 17:11 Dose: 4 mg Methylprednisolone (Medrol) 8 mg PO BEDTIME [facility] Stop: 08/15/16 21:01 Last Admin: 08/15/16 21:01 Dose: 8 mg Ondansetron HCl (Zofran) 4 mg IVPUSH ONETIME ONE Stop: 08/14/16 11:30 Last Admin: 08/14/16 11:42 Dose: 4 mg Prochlorperazine Edisylate (Compazine) 10 mg IVPUSH ONETIME ONE Stop: 08/14/16 13:06 Last Admin: 08/14/16 13:09 Dose: 10 mg - Exam General: alert, oriented, cooperative, no acute distress Neck: supple Lungs: Normal respiratory effort Abdomen: soft, no distension Back Exam: Muscle Spasm (left paraspinal), Paraspinal Tenderness (left lumbar). No: Vertebral Tenderness Extremities: no edema, no cyanosis Skin: warm, dry Psy/Mental Status: alert, normal affect - Problem List & Annotations (1) Acute left lumbar radiculopathy SNOMED Code(s): 479703963 Code(s): M54.16 - RADICULOPATHY, LUMBAR REGION Status: Acute Current Visit: Yes - Problem List Review Problem List Initiated/Reviewed/Updated: Yes - My Orders Last 24 Hours: My Active Orders 08/16/16 08:00 methylPREDNISolone [Medrol] 4 mg PO 0800,1100,1700,2100 08/16/16 14:15 HYDROmorphone [Dilaudid] 2 mg PO Q3H PRN tiZANidine [Zanaflex] 2 mg PO Q6H PRN 08/17/16 08:00 methylPREDNISolone [Medrol] 4 mg PO TID@0800,1100,2100 08/18/16 08:00 methylPREDNISolone [Medrol] 4 mg PO BID@0800,2100 - Plan Plan:: Assessment and plan - Acute left lumbar radiculopathy - imaging suggest pathology between L5 and S1. Severe pain again this morning. Somnolent after a couple of different doses of IV medications. Seems better again this afternoon. Has not been moving much today. Patient very hesitant to go home given severity of pain the last 2 mornings. No red flags. -Medrol Dosepak -Acetaminophen for mild pain, oral Dilaudid for moderate pain and IV Dilaudid for severe pain -Trial of tizanidine -Physical therapy -Consider orthopedic consultation if she does not continue to improve Maintenance issues - - DVT prophylaxis - mechanical - GI prophylaxis - not indicated - Nutrition - regular diet as tolerated Admission justification - patient will be referred to observation status for close monitoring, pain control and nausea management Disposition - anticipate discharge to home tomorrow if pain control better overnight Jose Erwin M.D.
[2016-08-16] MEDS: tiZANidine 4 MG Tab PO PRN (14:56)
[2016-08-16] MEDS: HYDROmorphone 2 MG Tab PO PRN ×3 (14:57→22:51)
[2016-08-17] MEDS: HYDROmorphone 2 MG Tab PO PRN ×3 (03:28→12:17)
[2016-08-17] MEDS: tiZANidine 4 MG Tab PO PRN (08:49)
[2016-08-17] MEDS: Acetaminophen 325 MG Tab PO PRN (08:50)
[2016-08-17 11:17] VITALS: BP 116/65
[2016-08-17] MEDS: Ibuprofen 600 MG Tab PO PRN (11:36)
[2016-08-17] MEDS ORDERED: Gabapentin 100 MG Cap PO ONE (12:45)
--- NOTE | 2016-08-17 14:41 | PCM.DCSUM1 ---
Discharge Summary - Hospital Course Brief History: 51-year-old female with history of gastric bypass who presented with acute lower back pain radiating to the left buttocks complicated by nausea with vomiting. She is admitted for management of acute lumbar radiculopathy. - Discharge Data Discharge Date: 08/17/16 Discharge Disposition: Home, Self-Care 01 Condition: Good - Discharge Diagnosis/Problem(s) (1) Acute left lumbar radiculopathy SNOMED Code(s): 497756591 ICD Code: M54.16 - RADICULOPATHY, LUMBAR REGION Status: Acute Current Visit: Yes - Patient Summary/Data Hospital Course: Laurence presented to the emergency room with persistent back and left hip pain as well as nausea with vomiting. Workup in the emergency room suggested loss of disc height between L5 and S1 but no other acute pathology. She was admitted to the hospital for symptom management and pain control. I was concerned that the nausea and vomiting could be related to her hydrocodone so I discontinued this in favor of oxycodone. I started her on a Medrol Dosepak as well as acetaminophen and provided a referral to physical therapy. Initially after admission she did fairly well but unfortunately had a flare of pain the following morning. We were able to get the pain under control using IV medications. She did have initially a better day and a good night the night following admission but then unfortunately had another bad morning, the second morning of her hospital stay. She received a dose of IV pain medication as well as an IV dose of lorazepam and then was somnolent the rest of the day. Once she was more awakened up and moving around her pain control did improve. We elected to skip an MRI and orthopedic consultation at this time with slow but fairly consistent improvement with only very minor speed bumps the 2 mornings of her hospital stay. She has made steady progress and I have not seen any red flags to raise concern for more severe pathology. I suspect this is a lumbar strain with left-sided radiculopathy that should resolve without any sort of intervention and conservative therapy only. On the day of discharge her pain is a fair amount better than at the time of presentation but not resolved. She is able to get to the bathroom and back and is able to ambulate out into the [facility] with the use of a walker. Pain has been controlled throughout the day utilizing only oral pain medications. She did receive a dose of gabapentin this afternoon and felt this provided modest benefit as well. I believe she is safe for outpatient management at this time. She will be going home with a combination of medications including [id number] analgesics for mild pain, Dilaudid for severe pain as well as a muscle relaxer. She has some exercises provided by physical therapy that she will be performing. She was encouraged to try to maintain activity but avoid strenuous activities. I don't believe that she will be able to perform her usual work duties for at least a few more days. She would benefit from close follow-up with her primary care. If her symptoms worsen or do not continue to get better an MRI of the lumbar spine could be indicated. - Patient Instructions Diet: Regular Diet as Tolerated Activity: As Tolerated, No Strenuous Activities Driving: Do Not Drive (if taking pain pills) Showering/Bathing: May Shower Notify Provider of: Fever, Increased Pain, Nausea and/or Vomiting Other/Special Instructions: 1. You were in the hospital for management of acute lower back pain with lumbar radiculopathy. I suspect that this was caused by overuse in the days prior to onset of the pain. There is no evidence for fracture or dislocation in your lumbar spine. This should completely resolve with time, stretching and avoidance of overuse. I would recommend that you continue to use ice packs for 20-30 minutes every 2-4 hours until the pain improves. You could consider a trial of a heating pad as well. 2. The following list of medications will be useful as you try to manage her pain after discharge from the hospital: - Tylenol arthritis 650 mg - take one tablet every 4 hours as needed for mild pain. - Ibuprofen 600 mg - you may take this alternating with Tylenol every 6 hours as needed for mild pain. - Dilaudid 2 mg - take this every 3 hours as needed for severe pain. - tizanidine 2 mg - take this every 6 hours as needed for muscle spasms in your lower back. - Gabapentin 300 mg - take this twice daily in the morning and at bedtime for 5 days ( this medication decreases nerve pain ). - Methylprednisolone 4 mg - take one tablet by mouth twice daily for 4 doses. Your first dose is due tonight. ( anti-inflammatory ). 3. Please remain active as tolerated avoid strenuous activities. Gentle stretching exercises for your lower back can be helpful in the healing process. 4. Follow up with Dr. Meng on Friday or to reassess your back pain. 5. I would recommend no work until the end of next week after followup with Dr. Meng. 6. Please seek medical attention if you develop fever greater than 101, have severe pain that is not controlled with your medications at home or you become incontinent of bowel or bladder. - Discharge Plan Prescriptions/Med Rec: Gabapentin [Neurontin] 300 mg PO BID #10 cap HYDROmorphone [Dilaudid] 2 mg PO Q3H PRN #25 tablet PRN Reason: Pain (Severe 7-10) methylPREDNISolone [Methylprednisolone] 4 mg PO BID #4 tablet tiZANidine [Zanaflex] 2 mg PO Q6H PRN #20 tablet PRN Reason: Muscle Spasm Home Medications: Home Meds Multivitamin [Multi-Vitamin Daily] 1 tab PO DAILY 08/14/16 [History] Gabapentin [Neurontin] 300 mg PO BID #10 cap 08/17/16 [Rx] HYDROmorphone [Dilaudid] 2 mg PO Q3H PRN #25 tablet 08/17/16 [Rx] methylPREDNISolone [Methylprednisolone] 4 mg PO BID #4 tablet 08/17/16 [Rx] tiZANidine [Zanaflex] 2 mg PO Q6H PRN #20 tablet 08/17/16 [Rx] Patient Handouts: Tizanidine tablets or capsules, Back Pain, Adult, Easy-to- Read Referrals: Gabby Meng CNM [Primary Care Provider] - (f/u 4-5 days - followup hospital stay for acute lumbar radiculopathy (Friday or )) - Discharge Summary/Plan Comment DC Time >30 min.: No (25) - Patient Data Vitals - Most Recent: Last Vital Signs Temp 36.0 C 08/17/16 11:16 Pulse 65 08/17/16 11:16 Resp 16 08/17/16 11:16 BP 116/65 08/17/16 11:16 Pulse Ox 92 L 08/17/16 11:16 Weight - Most Recent: 102.965 kg I&O - Last 24 hours: Intake & Output 08/16/16 08/17/16 08/17/16 22:59 06:59 14:59 Intake Total 610 Balance 610 Med Orders - Current: Current Medications Acetaminophen (Tylenol) 650 mg PO Q4H PRN PRN Reason: Pain (Mild 1-3)/fever Last Admin: 08/17/16 08:50 Dose: 650 mg Hydromorphone HCl (Dilaudid) 0.5 - 1 mg IVPUSH Q2H PRN PRN Reason: Pain (severe 7-10) Last Admin: 08/16/16 07:56 Dose: 1 mg Hydromorphone HCl (Dilaudid) 2 mg PO Q3H PRN PRN Reason: Pain (moderate 4-6) Last Admin: 08/17/16 12:17 Dose: 2 mg Ibuprofen (Motrin) 600 mg PO Q6H PRN PRN Reason: Pain/Fever Last Admin: 08/17/16 11:36 Dose: 600 mg Lorazepam (Ativan) 0.5 - 1 mg IVPUSH Q4H PRN PRN Reason: Nausea/Vomiting Last Admin: 08/16/16 09:08 Dose: 1 mg Methylprednisolone (Medrol) 4 mg PO TID@0800,1100,2100 RICARDO Stop: 08/17/16 21:01 Last Admin: 08/17/16 11:37 Dose: 4 mg Methylprednisolone (Medrol) 4 mg PO BID@0800,2100 RICARDO Stop: 08/18/16 21:01 Ondansetron HCl (Zofran Odt) 4 mg PO Q6H PRN PRN Reason: Nausea able to take PO Last Admin: 08/16/16 06:52 Dose: 4 mg Ondansetron HCl (Zofran) 4 mg IV Q6H PRN PRN Reason: Nausea/Vomiting Last Admin: 08/14/16 17:51 Dose: 4 mg Polyethylene Glycol (Miralax) 17 gm PO DAILY PRN PRN Reason: Constipation Last Admin: 08/16/16 19:38 Dose: 17 gm Senna/Docusate Sodium (Senna Plus) 1 tab PO BID PRN PRN Reason: Constipation Last Admin: 08/16/16 19:38 Dose: 1 tab Tizanidine HCl (Zanaflex) 2 mg PO Q6H PRN PRN Reason: Muscle Spasm Last Admin: 08/17/16 08:49 Dose: 2 mg Discontinued Medications Diazepam (Valium) 3 mg IVPUSH ONETIME ONE Stop: 08/14/16 11:30 Last Admin: 08/14/16 11:45 Dose: 3 mg Gabapentin (Neurontin) 200 mg PO ONETIME ONE Stop: 08/17/16 12:46 Last Admin: 08/17/16 13:03 Dose: 200 mg Hydromorphone HCl (Dilaudid) 0.5 mg IVPUSH ONETIME ONE Stop: 08/14/16 12:40 Last Admin: 08/14/16 12:45 Dose: 0.5 mg Sodium Chloride (Normal Saline) 1,000 mls @ 999 mls/hr IV ASDIRECTED [facility] Last Admin: 08/14/16 11:41 Dose: 999 mls/hr Sodium Chloride (Normal Saline) 1,000 mls @ 250 mls/hr IV ASDIRECTED [facility] Last Admin: 08/14/16 13:03 Dose: 250 mls/hr Ketorolac Tromethamine (Toradol) 30 mg IVPUSH ONETIME ONE Stop: 08/14/16 11:30 Last Admin: 08/14/16 11:49 Dose: 30 mg Methylprednisolone (Medrol) 8 mg PO TID@1700,2000,2200 [facility] Stop: 08/14/16 22:01 Last Admin: 08/14/16 21:07 Dose: 8 mg Methylprednisolone (Medrol) 4 mg PO TIDMEALS [facility] Stop: 08/15/16 17:01 Last Admin: 08/15/16 17:11 Dose: 4 mg Methylprednisolone (Medrol) 8 mg PO BEDTIME [facility] Stop: 08/15/16 21:01 Last Admin: 08/15/16 21:01 Dose: 8 mg Methylprednisolone (Medrol) 4 mg PO 0800,1100,1700,2100 [facility] Stop: 08/16/16 21:01 Last Admin: 08/16/16 20:29 Dose: 4 mg Ondansetron HCl (Zofran) 4 mg IVPUSH ONETIME ONE Stop: 08/14/16 11:30 Last Admin: 08/14/16 11:42 Dose: 4 mg Oxycodone HCl (Oxycodone) 5 mg PO Q4H PRN PRN Reason: Pain (moderate 4-6) Last Admin: 08/16/16 05:35 Dose: 5 mg Prochlorperazine Edisylate (Compazine) 10 mg IVPUSH ONETIME ONE Stop: 08/14/16 13:06 Last Admin: 08/14/16 13:09 Dose: 10 mg *Q Meaningful Use (DIS) - VTE *Q VTE Criteria *Q: - Stroke *Q Stroke Criteria *Q: - AMI *Q AMI Criteria *Q:
== END 2016-08-17 16:00 | disposition home or self-care (01) ==
LOC: JP.ED 10:46 → JP.2SS 14:00 → OBSVTOIN 14:53 → INTOOBSV 14:53 → UNDODISIN 08-17 16:00
PROVIDERS: ADMIT Internal Medicine; ATTEND Internal Medicine
DX: M54.16 Radiculopathy, lumbar region (principal); Z88.2 Allergy status to sulfonamides; Z91.018 Allergy to other foods; Z79.899 Other long term (current) drug therapy; E66.9 Obesity, unspecified; Z98.84 Bariatric surgery status; Z90.49 Acquired absence of other specified parts of digestive tract; Z68.30 Body mass index [BMI] 30.0-30.9, adult
CPT/HCPCS: 36415; 72110; 80053; 81001; 85025; 96361; 96374; 96375; 96376; 97112; 97162; 97530; 97535; 99285; A9270; G0378; J0780; J1170; J1885; J2060; J2405; J3360; J7040

== ENCOUNTER 2019-06-27 15:55 | Emergency (ER) | payer OTHER ==
[2019-06-27 16:42] VITALS: BP 141/84; PULSE 83
[2019-06-27] MEDS ORDERED: Triamcinolone Acetonide 40 MG/ML 1 ML SDV INJECT ONE (17:05)
--- NOTE | 2019-06-27 17:15 | EDM.PDOC ---
ED HPI GENERAL MEDICAL PROBLEM - General Chief Complaint: Skin Complaint Stated Complaint: POISON SELENE Time Seen by Provider: 06/27/19 17:09 Source of Information: Reports: Patient History Limitations: Reports: No Limitations - History of Present Illness INITIAL COMMENTS - FREE TEXT/NARRATIVE: pt arrived with poison selene on the rt side of her face and into the eye. This is also going down the neck. Onset: Gradual Duration: Hour(s): Location: Reports: Face, Neck Associated Symptoms: Reports: No Other Symptoms - Related Data Allergies Allergy/AdvReac Type Severity Reaction Status Date / Time apple Allergy Airway Verified 06/27/19 16:48 Tightness peach Allergy Airway Verified 06/27/19 16:48 Tightness peanut Allergy Airway Verified 06/27/19 16:48 Tightness Sulfa (Sulfonamide Allergy Rash Verified 06/27/19 16:48 Antibiotics) tree nut Allergy Airway Verified 06/27/19 16:48 Tightness Home Meds: Home Meds Alpha Lipoic Acid 200 mg PO TID 09/05/16 [History] Aspirin 2 tab PO DAILY 09/05/16 [History] Biotin 1 tab PO DAILY 09/05/16 [History] Chromium Picolinate 1 tab PO DAILY 09/05/16 [History] Cyanocobalamin (Vitamin B-12) [Vitamin B12] 1 tab PO DAILY 09/05/16 [History] Ferrous Sulfate, Dried [Iron] 65 mg PO DAILY 09/05/16 [History] Garlic 600 mg PO DAILY 09/05/16 [History] Ginkgo Biloba 1 tab PO DAILY 09/05/16 [History] Multivitamin [Multivitamins] 1 tab PO TID 09/05/16 [History] Slater-3/DHA/Epa/Fish Oil [Slater 3 500 Softgel] 1 tab PO TID 09/05/16 [History] Turmeric/Turmeric Root Extract [Turmeric] 600 mg PO TID 09/05/16 [History] Magnesium 144 mg PO TID 06/04/17 [History] Dulaglutide [Trulicity] 1 injection SUBCUT WEEKLY 06/27/19 [History] metFORMIN HCl [Metformin HCl] 1 tab PO BID 06/27/19 [History] Past Medical History [employer] History: Reports: Musculoskeletal History: Reports: Back Pain, Chronic, Other (See Below) Other Musculoskeletal History: L hip and leg pain Endocrine/Metabolic History: Reports: Obesity/BMI 30+ - Infectious Disease History Infectious Disease History: Reports: Chicken Pox - Past Surgical History HEENT Surgical History: Reports: Tonsillectomy GI Surgical History: Reports: Bariatric Procedure, Cholecystectomy Social & Family History - Family History Oncologic: Reports: Prostate - Tobacco Use Smoking Status *Q: Never Smoker - Caffeine Use Caffeine Use: Reports: None ED ROS GENERAL - Review of Systems Review Of Systems: See Below Constitutional: Reports: No Symptoms HEENT: Reports: No Symptoms Respiratory: Reports: No Symptoms Cardiovascular: Reports: No Symptoms Endocrine: Reports: No Symptoms GI/Abdominal: Reports: No Symptoms : Reports: No Symptoms, Urinary Retention Skin: Reports: No Symptoms, Other ( swelling of the rt eye and the face. and a rash down the neck. ) Neurological: Reports: No Symptoms Psychiatric: Reports: No Symptoms ED EXAM, SKIN/RASH Exam: See Below Text/Narrative:: pt arrived with a rah on her rt facial area, rt eye and extending down the neck. Exam Limited By: No Limitations General Appearance: Alert, Anxious Ears: Normal TMs Nose: Normal Inspection Throat/Mouth: Normal Inspection Head: Atraumatic Neck: Normal Inspection Respiratory/Chest: No Respiratory Distress Skin: Other (pt has a vesicular rash on the neck rt facial area and rt eye. ) Course - Vital Signs Last Recorded V/S: Last Vital Signs Temp 36.6 C 06/27/19 16:56 Pulse 83 06/27/19 16:56 Resp 16 06/27/19 16:56 BP 141/84 H 06/27/19 16:56 Pulse Ox 96 06/27/19 16:56 - Orders/Labs/Meds Meds: Medications Discontinued Medications Generic Name Dose Route Start Last Admin Trade Name Freq PRN Reason Stop Dose Admin Triamcinolone Acetonide 60 mg 06/27/19 17:05 Kenalog-40 INJECT 06/27/19 17:06 ASDIRECTED ONE - Re-Assessments/Exams Free Text/Narrative Re-Assessment/Exam: 06/27/19 17:12 pt was given kenalog 60 mg im. Departure - Departure Time of Disposition: 17:13 Disposition: Home, Self-Care 01 Condition: Fair Clinical Impression: Poison selene dermatitis - Discharge Information Referrals: Gabby Meng CNM [Primary Care Provider] - Care Plan Goals: kenalog cream to facial area but not around the eye, benadryl 25-50 mg as needed for itching, predisone 10mg 1 tab daily for 5 days, topradex eye ointment apply to around the rt eye. tid Sepsis Event Note - Evaluation Sepsis Screening Result: No Definite Risk - Focused Exam Vital Signs: Vital Signs Temp Pulse Resp BP Pulse Ox 06/27/19 16:56 36.6 C 83 16 141/84 H 96 06/27/19 16:40 36.6 C 83 16 141/84 H 96 Date Exam was Performed: 06/27/19 Time Exam was Performed: 17:09
== END 2019-06-27 18:03 | disposition home or self-care (01) ==
LOC: JP.ED 15:55
DX: L23.7 Allergic contact dermatitis due to plants, except food (principal); E66.9 Obesity, unspecified; Z79.899 Other long term (current) drug therapy; Z68.29 Body mass index [BMI] 29.0-29.9, adult; Z91.018 Allergy to other foods; Z91.010 Allergy to peanuts; Z88.2 Allergy status to sulfonamides
CPT/HCPCS: 99282; J3301

== ENCOUNTER 2021-10-17 09:38 | Emergency (ER) | payer OTHER ==
[2021-10-17 09:57] VITALS: BP 155/80; PULSE 69
[2021-10-17] MEDS ORDERED: Sodium Chloride 0.9% 10 ML Syringe FLUSH PRN (10:33)
[2021-10-17] MEDS ORDERED: Sodium Chloride 0.9% 1,000 ML IV ONE (10:33)
[2021-10-17] MEDS ORDERED: Ondansetron 4 MG/2 ML SDV IVPUSH ONE (10:33)
[2021-10-17] MEDS ORDERED: Ketorolac 30 MG/ML SDV IVPUSH ONE (10:33)
== END 2021-10-17 12:50 | disposition home or self-care (01) ==
LOC: JP.ED 09:38
DX: N20.0 Calculus of kidney (principal); R31.9 Hematuria, unspecified; E66.9 Obesity, unspecified; Z68.31 Body mass index [BMI] 31.0-31.9, adult; Z91.018 Allergy to other foods; Z91.010 Allergy to peanuts; Z88.2 Allergy status to sulfonamides; Z79.899 Other long term (current) drug therapy; Z79.82 Long term (current) use of aspirin; Z79.84 Long term (current) use of oral hypoglycemic drugs; Z90.49 Acquired absence of other specified parts of digestive tract
CPT/HCPCS: 36415; 74176; 80048; 81001; 96361; 96374; 96375; 99284; J1885; J2405; J7030

== ENCOUNTER 2022-12-27 08:15 | Day surgery (SDC) | payer OTHER ==
[2022-12-27] MEDS ORDERED: Lactated Ringers 1,000 ML IV SCH (09:00)
[2022-12-27] MEDS ORDERED: Propofol 200 MG/20 ML SDV ONE (11:19)
[2022-12-27 13:06] VITALS: BP 113/61; PULSE 78
== END 2022-12-27 13:28 | disposition home or self-care (01) ==
LOC: JP.SDS 08:15
PROVIDERS: ATTEND Student in an Organized Health Care Education/Training Program
DX: D12.3 Benign neoplasm of transverse colon (principal); D12.4 Benign neoplasm of descending colon; D12.5 Benign neoplasm of sigmoid colon; K57.30 Diverticulosis of large intestine without perforation or abscess without bleeding; E11.9 Type 2 diabetes mellitus without complications; Z98.84 Bariatric surgery status; Z88.2 Allergy status to sulfonamides; Z88.8 Allergy status to other drugs, medicaments and biological substances; Z91.010 Allergy to peanuts; Z91.018 Allergy to other foods
CPT/HCPCS: 45380; 88305; J2704; J7120

== ENCOUNTER 2023-08-27 18:40 | Emergency (ER) | payer MEDICAID ==
[2023-08-27 20:38] VITALS: BP 116/63; PULSE 91
[2023-08-27 20:41] LABS: APPEARANCE,URINE CLEAR (CLEAR); BILIRUBIN,URINE NEGATIVE (NEGATIVE); COLOR,URINE YELLOW (YELLOW); GLUCOSE,URINE NEGATIVE (NEGATIVE); KETONES,URINE NEGATIVE (NEGATIVE); LEUKOCYTE ESTERASE,URINE TRACE (NEGATIVE); NITRITE,URINE NEGATIVE (NEGATIVE); OCCULT BLOOD,URINE NEGATIVE (NEGATIVE); PH,URINE 5.5 (5.0-8.0); PROTEIN,URINE NEGATIVE (NEGATIVE); UROBILINOGEN,URINE 0.2 EU/dL (0.2-1.0)
[2023-08-27 20:50] LABS: AMORPHOUS SEDIMENT,URINE NOT SEEN; BACTERIA,URINE RARE; EPITHELIAL CELLS,URINE RARE; MUCUS,URINE NOT SEEN; RBC,URINE 0-5 (0-5); WBC,URINE 0-5 (0-5)
[2023-08-27 21:02] LABS: BASOPHILS ABSOLUTE AUTO 0.03 K/uL (0.00-0.10); BASOPHILS PERCENT AUTO 0.3 % (0.1-1.3); EOSINOPHILS ABSOLUTE AUTO 0.11 K/uL (0.00-0.40); EOSINOPHILS PERCENT AUTO 1.2 % (0.0-5.4); HEMATOCRIT 32.6 % (34.3-46.0); HEMOGLOBIN 11.1 g/dL (11.2-15.5); IMMATURE GRAN ABSOLUTE AUTO 0.03 K/uL (0.00-0.23); IMMATURE GRAN PERCENT AUTO 0.3 % (0.0-0.7); LYMPHOCYTES PERCENT AUTO 15.2 % (11.4-47.7); MEAN CORPUSCULAR HEMOGLOBIN 31.5 pg (31.6-35.5); MEAN CORPUSCULAR VOLUME 92.6 fL (81.4-99.0); MONOCYTES ABSOLUTE AUTO 0.76 K/uL (0.20-0.90); MONOCYTES PERCENT AUTO 8.3 % (3.3-12.6); NEUTROPHILS ABSOLUTE AUTO 6.88 K/uL (1.0-7.6); NEUTROPHILS PERCENT AUTO 74.7 % (40.0-78.1); PLATELET COUNT,PLT 209 K/uL (130-375); RED BLOOD CELL COUNT 3.52 M/uL (3.77-5.24); WHITE BLOOD CELL COUNT,WBC 9.2 K/uL (3.2-11.0)
[2023-08-27 21:22] LABS: A/G RATIO 0.8 (1.2-2.2); ALANINE AMINOTRANSFERASE,ALT 39 U/L (12-78); ALBUMIN 2.9 g/dL (3.4-5.0); ALKALINE PHOSPHATASE 84 U/L (46-116); ASPARTATE AMNIOTRANSFERASE,AST 18 U/L (15-37); BILIRUBIN TOTAL 0.8 mg/dL (0.2-1.0); BLOOD UREA NITROGEN,BUN 22 mg/dL (7-18); C-REACTIVE PROTEIN 8.42 mg/dL (<0.50); CALCIUM 9.2 mg/dL (8.5-10.1); CARBON DIOXIDE,CO2 30 mmol/L (21-32); CHLORIDE,CL 100 mmol/L (100-108); CREATININE 0.8 mg/dL (0.6-1.0); EST CRCL DRUG DOSING (CG) 72.72 mL/min; ESTIMATED GFR 84 mL/min (>60); GLUCOSE RANDOM 125 mg/dL (74-106); POTASSIUM,K 3.8 mmol/L (3.6-5.2); PROTEIN TOTAL,TP 6.5 g/dL (6.4-8.2); SODIUM,NA 137 mmol/L (140-148)
[2023-08-27 21:27] LABS: ANION GAP 10.8 mmol/L (5.0-14.0)
[2023-08-27] MEDS: Doxycycline 100 MG Cap PO ONE (22:39)
== END 2023-08-27 22:58 | disposition home or self-care (01) ==
LOC: JP.ED 18:40
DX: L03.311 Cellulitis of abdominal wall (principal); E11.9 Type 2 diabetes mellitus without complications; Z91.018 Allergy to other foods; Z91.010 Allergy to peanuts; Z88.2 Allergy status to sulfonamides; Z79.82 Long term (current) use of aspirin; Z79.899 Other long term (current) drug therapy; Z90.49 Acquired absence of other specified parts of digestive tract
CPT/HCPCS: 36415; 80053; 81001; 83605; 83690; 85025; 86140; 99284; A9270

== ENCOUNTER 2024-05-19 02:44 | Emergency (ER) | payer OTHER ==
[2024-05-19 03:13] LABS: BASOPHILS ABSOLUTE AUTO 0.03 K/uL (0.00-0.10); BASOPHILS PERCENT AUTO 0.5 % (0.1-1.3); EOSINOPHILS ABSOLUTE AUTO 0.05 K/uL (0.00-0.40); EOSINOPHILS PERCENT AUTO 0.9 % (0.0-5.4); HEMATOCRIT 37.3 % (34.3-46.0); HEMOGLOBIN 12.4 g/dL (11.2-15.5); IMMATURE GRAN PERCENT AUTO 0.2 % (0.0-0.7); LYMPHOCYTES ABSOLUTE AUTO 2.15 K/uL (0.8-3.3); LYMPHOCYTES PERCENT AUTO 39.1 % (11.4-47.7); MEAN CORPUSCULAR HEMOGLOBIN 30.7 pg (31.6-35.5); MEAN CORPUSCULAR HGB CONC 33.2 g/dL (31.6-35.5); MEAN CORPUSCULAR VOLUME 92.3 fL (81.4-99.0); MONOCYTES ABSOLUTE AUTO 0.41 K/uL (0.20-0.90); MONOCYTES PERCENT AUTO 7.5 % (3.3-12.6); NEUTROPHILS ABSOLUTE AUTO 2.85 K/uL (1.0-7.6); NEUTROPHILS PERCENT AUTO 51.8 % (40.0-78.1); PLATELET COUNT,PLT 211 K/uL (130-375); RED BLOOD CELL COUNT 4.04 M/uL (3.77-5.24); WHITE BLOOD CELL COUNT,WBC 5.5 K/uL (3.2-11.0)
[2024-05-19 03:15] LABS: IMMATURE GRAN ABSOLUTE AUTO 0.01 K/uL (0.00-0.23)
[2024-05-19 03:21] LABS: APPEARANCE,URINE SLIGHTLY CLOUDY (CLEAR); BILIRUBIN,URINE NEGATIVE (NEGATIVE); COLOR,URINE YELLOW (YELLOW); GLUCOSE,URINE NEGATIVE (NEGATIVE); KETONES,URINE NEGATIVE (NEGATIVE); LEUKOCYTE ESTERASE,URINE SMALL (NEGATIVE); NITRITE,URINE NEGATIVE (NEGATIVE); OCCULT BLOOD,URINE MODERATE (NEGATIVE); PH,URINE 5.5 (5.0-8.0); PROTEIN,URINE NEGATIVE (NEGATIVE); UROBILINOGEN,URINE 0.2 EU/dL (0.2-1.0)
[2024-05-19 03:25] LABS: CALCIUM 9.1 mg/dL (8.5-10.1); CREATININE 0.9 mg/dL (0.6-1.0); EST CRCL DRUG DOSING (CG) 64.64 mL/min; POTASSIUM,K 3.4 mmol/L (3.6-5.2)
[2024-05-19 03:27] LABS: WBC,URINE 50-75 (0-5)
[2024-05-19 03:28] LABS: BACTERIA,URINE FEW; EPITHELIAL CELLS,URINE RARE; MUCUS,URINE NOT SEEN
[2024-05-19 03:29] LABS: ANION GAP 15.4 mmol/L (5.0-14.0)
[2024-05-19 03:31] LABS: A/G RATIO 1.3 (1.2-2.2); ALANINE AMINOTRANSFERASE,ALT 46 U/L (12-78); ALKALINE PHOSPHATASE 133 U/L (46-116); ASPARTATE AMNIOTRANSFERASE,AST 29 U/L (15-37); BILIRUBIN DIRECT 0.16 mg/dL (0.0-0.2); BILIRUBIN INDIRECT 0.54; BILIRUBIN TOTAL 0.7 mg/dL (0.2-1.0); C-REACTIVE PROTEIN < 0.50 mg/dL (<0.50); PROTEIN TOTAL,TP 7.2 g/dL (6.4-8.2)
[2024-05-19] MEDS: Ketorolac 15 MG/ML SDV IVPUSH ONE (03:33)
[2024-05-19] MEDS: Ondansetron 4 MG/2 ML SDV IVPUSH ONE (03:37)
[2024-05-19 05:20] VITALS: BP 126/78; PULSE 65
== END 2024-05-19 05:15 | disposition home or self-care (01) ==
LOC: JP.ED 02:44
DX: N20.2 Calculus of kidney with calculus of ureter (principal); E13.8 Other specified diabetes mellitus with unspecified complications; E66.9 Obesity, unspecified; Z91.010 Allergy to peanuts; Z91.018 Allergy to other foods; Z88.8 Allergy status to other drugs, medicaments and biological substances; Z88.2 Allergy status to sulfonamides; Z79.899 Other long term (current) drug therapy; Z90.49 Acquired absence of other specified parts of digestive tract; Z68.24 Body mass index [BMI] 24.0-24.9, adult
CPT/HCPCS: 36415; 74176; 80048; 80076; 81001; 83690; 85025; 86140; 96374; 96375; 99283; 99284-25; J1885; J2405